=== PATIENT | male | born 1960 ===

== ENCOUNTER 2017-09-02 11:45 | Emergency (ER) | payer OTHER ==
[2017-09-02 12:05] VITALS: BP 146/92; TEMP 98.7; BMI 26.9
[2017-09-02] MEDS ORDERED: OXYMETAZOLINE 0.05% NASAL SOLUTION 15 ML BOTTLE NS ONE ×2 (12:20→12:23)
--- NOTE | 2017-09-02 12:20 | PDOC ---
History of Present Illness - General Chief Complaint: Nasal Bleeding Stated Complaint: NOSEBLEED Time Seen by Provider: 09/02/17 12:03 History Source: Patient Exam Limitations: No Limitations - History of Present Illness Initial Comments: 09/02/17 12:18 57-year-old male medical history here today complaining of nosebleed 4 days. Patient has intermittent bleeding from the left nostril. Intermittently has had right-sided bleeding in the past but not recently no trauma. Denies feeling dizzy. No chest pain or shortness of breath he does take a baby aspirin daily also reports recently having had dark stools but no bright red blood per rectum or other abnormal bleeding no other current complaints Past History - Past Medical History Allergies/Adverse Reactions: Allergies Allergy/AdvReac Type Severity Reaction Status Date / Time No Known Allergies Allergy Verified 09/02/17 11:49 Home Medications: Ambulatory Orders Aspirin [Aspirin EC] 81 mg PO DAILY 09/02/17 COPD: No HTN: Yes - Suicide/Smoking/Psychosocial Hx Smoking History: Never smoked Have you smoked in the past 12 months: No Hx Alcohol Use: (daily) Review of Systems - Review of Systems Constitutional: No: Chills, Diaphoresis HEENTM: Yes: Nose Bleeding. No: Eye Pain Respiratory: No: Orthopnea, Shortness of Breath Cardiac (ROS): No: Chest Pain ABD/GI: Yes: Other (dark stool) Musculoskeletal: No: Back Pain Integumentary: No: Bruising Neurological: No: Headache All Other Systems: Reviewed and Negative *Physical Exam - Vital Signs Last Vital Signs Temp Pulse Resp BP Pulse Ox 98.7 F 110 H 20 146/92 100 09/02/17 11:45 09/02/17 11:45 09/02/17 11:45 09/02/17 11:45 09/02/17 11:45 - Physical Exam HEENT: positive: Normal Voice, Other (dried blood left nasal septum. no active bleeding.). negative: Tonsillar Exudate, Tonsillar Erythema Respiratory/Chest: positive: Lungs Clear, Normal Breath Sounds Cardiovascular: positive: Regular Rhythm, Regular Rate, S1, S2 Extremity: positive: Normal Capillary Refill, Normal Inspection Integumentary: positive: Normal Color, Dry, Warm Neurologic: positive: Fully Oriented, Alert, Normal Mood/Affect ED Treatment Course - LABORATORY CBC & Chemistry Diagram: 09/02/17 12:05 09/02/17 12:05 Medical Decision Making - Medical Decision Making 09/02/17 12:19 57 yo on baby aspirin here today c/o nasal bleedign left side. plan pressure, afrin spray. will check blood work to r/o dyscrasia, anemia, coagulopathy. cbc lytes cmp. 09/02/17 13:25 bleedign controlled with afrin, surgicel and pressure. cbc normal. dc home. *DC/Admit/Observation/Transfer Diagnosis at time of Disposition: Epistaxis - Discharge Dispostion Disposition: HOME Condition at time of disposition: Improved - Referrals Referrals: Winston Young MD [Staff Physician] - - Patient Instructions Printed Discharge Instructions: Nosebleed Additional Instructions: for recurrent bleeding apply pressure. you can apply bacitracin ointment in the nose at night to moisturize. follow up with ear nose throat specialist, call to schedule with dr. young. return for any recurrent bleeding not controlled with 10 minutes of continuous pressure or any concerns. Print Language: ALBANIAN - Post Discharge Activity
[2017-09-02 12:34] LABS: ACTIVATED PTT 27.7 SECONDS (24.0-38.9)
[2017-09-02 12:36] LABS: ALK PHOS 70 U/L (32-92); ANION GAP 9 (8-16); BLOOD UREA NITROGEN 23 mg/dl (7-18); CHLORIDE 102 mmol/L (98-107); CO2 25 mmol/L (22-28); GLUCOSE,RANDOM 150 mg/dl (74-106); POTASSIUM 3.6 mmol/L (3.5-5.1); SGOT/AST 33 U/L (10-42); SGPT/ALT 38 U/L (10-40); SODIUM 136 mmol/L (136-145); TOT PROT 7.2 g/dl (6.4-8.3)
[2017-09-02 12:38] LABS: INR 1.21 (0.82-1.09); PROTHROMBIN TIME (PATIENT) 13.5 SEC (10.2-13.0)
[2017-09-02 12:46] LABS: CREATININE < 0.8 mg/dl (0.6-1.3)
[2017-09-02 13:19] LABS: EOS % 5.4 % (0-4.5); HEMATOCRIT 40.7 % (35.4-49); HEMOGLOBIN 13.8 GM/dL (11.7-16.9); LYMPH % 38.9 % (8-40); MCH 32.6 pg (25.7-33.7); MEAN CELL VOLUME 96.1 fl (80-96); MEAN PLT VOLUME 8.9 fl (7.5-11.1); MONO % 8.7 % (3.8-10.2); PLATELET COUNT 252 K/MM3 (134-434); RBC 4.24 M/mm3 (4.00-5.60); WHITE BLOOD COUNT 8.1 K/mm3 (4.0-10.0)
[2017-09-02 13:53] VITALS: PULSE 97
== END 2017-09-02 13:47 | disposition home or self-care (01) ==
LOC: FER 11:45
DX: R04.0 Epistaxis (principal); I10 Essential (primary) hypertension
CPT/HCPCS: 36415; 80053; 82272; 85025; 85610; 85730; 99283-25